=== PATIENT | female | born 1960 | race Caucasian/White ===

== ENCOUNTER 2020-05-29 12:47 | Outpatient (CLI) | payer OTHER ==
--- NOTE | 2020-05-29 13:15 | RAD ---
4 views of the cervical spine: 05/29/2020 COMPARISON: None available HISTORY: Right arm numbness, radiculopathy FINDINGS: There is disc space narrowing with mild posterior osteophyte at the C4-5 and C5-6 level. Mi ld anterior osteophyte formation noted at C5-6. No anterolisthesis or retrolisthesis. No prevertebral soft tissue swelling. Frontal exam demonstrates mild bilateral uncovertebral osteophyte formation at C4-5 and C5-6. There i s bilateral facet hypertrophy at C5-6 and C6-7, left greater than right. The open-mouth odontoid view demonstrates a normal-appearing dens and C1-2 articulation. IMPRESSION: Degenerative changes as detailed above. No acute osseous abnormality.
== END 2020-05-29 12:48 | disposition home or self-care (01) ==
LOC: BICRAD 12:47
PROVIDERS: ATTEND Internal Medicine
DX: M47.22 Other spondylosis with radiculopathy, cervical region (principal)
CPT/HCPCS: 72040